=== PATIENT | male | born 1965 | race Caucasian/White ===

== ENCOUNTER 2022-12-31 14:19 | Observation (INO) | payer MEDICAID, SELFPAY ==
[2022-12-31] VITALS (9 sets, daily range): BP systolic 148–187; BP diastolic 95–107; PULSE 71–90; RESP 16–18; TEMP 36.9–37; O2SAT 96–99; BMI 33.5
--- NOTE | 2022-12-31 14:42 | ED_ITS ---
HPI - General Adult General Time Seen by Provider: 14:43 Date Seen: 12/31/22 Chief complaint: Neuro Symptoms/Altered Deficit Stated complaint: History of strokes, having memory issues today. Time Seen by Provider: 12/31/22 14:34 Source: patient and RN notes reviewed Mode of arrival: ambulatory Limitations: no limitations History of Present Illness HPI narrative: This 57yo male is accompanied to ED by his son and daughter with concerns of confusion in setting of history of stroke. He was fine on the phone last night when his son talked to him about 8pm, had about a 3min conversation. This morning his daughter called him and asked if he wanted to go to [employer] which he did. She went to his house and he drove in his truck. He seemed confused on the way there, required help with directions. When they got to [employer], he noted that he did not even know why they were they or couldn't remember anything he needed. His stroke was in 2016 with left facial drooping, left arm and leg deficits per report. He hasn't been to the clinic here except once in about 2 years. He doesn't know when he last took aspirin or his blood pressure medications. Denies any falls or injuries, no chest pain, no shortness of breath, has not been ill with anything, no abdominal symptoms. No fevers. His children note that he moved here from [place] about 2 years ago to dry out. Denies any visual changes. Related Data Home Medications Medication Instructions Recorded Confirmed amlodipine 10 mg tablet 10 mg PO DAILY 12/31/22 12/31/22 aspirin 81 mg capsule 81 mg PO DAILY 12/31/22 12/31/22 lisinopril 40 mg tablet 40 mg PO DAILY 12/31/22 12/31/22 Allergies Allergy/AdvReac Type Severity Reaction Status Date / Time Penicillins Allergy Verified 12/31/22 14:33 Review of Systems Status of ROS: Reports: 6 or more systems reviewed and unremarkable except as noted in History and below Exam Const: Vital Signs, click to edit/add: Vital Signs - 24 hr 12/31/22 14:26 12/31/22 15:00 12/31/22 16:16 Pulse Rate [Left P ulse Oximeter] 90 82 Respiratory Rate 18 Blood Pressure [Le ft Upper Arm] 187/107 H 173/98 H Pulse Oximetry 98 98 96 Oxygen Delivery Me thod Room Air Room Air This 57-year-old male is alert, interactive, no apparent distress. He is ambulatory in the ED with normal gait. Pupils are equal round reactive, extraocular muscles intact, sclera clear. Symmetrical facial function. Appears to have prior trauma to right ear, has thickening of the external ear. Speech is normal, see some tobacco remnants from oral tobacco use on the tongue but tongue protrudes midline. Smile is normal, has symmetrical facial function. Neck is thicker but supple, no masses. Is able to sit up, lungs are clear, good air entry, no wheezing or crackles. CV regular rate and rhythm, no murmur, normal S1-S2. Abdomen is soft, no rebound or guarding, umbilical hernia that is not entrapped. Strength is 5/5 and symmetric, normal light touch sensation. No dysmetria no tremors, no arm drift. Patient knows the year to be 2022, the month of December, answers the dated be Sunday. Knows the president is Simeon. Documenting provider has reviewed patient's vital signs: yes Course Course ED Course: Will have patient have a noncontrast head CT. There certainly seem to be some memory or confusion issues today. He is hypertensive but it has been off his meds, will observe as lowering his blood pressure could be detrimental as well. Will have him on pulse oximetry, obtain EKG and labs. Will talk to Neurology about him given his history. I see nothing focal outside of the reported confusion suggesting a large territory CVA and timing is problematic with last known well last night. Reevaluation(s) Time of Reevaluation #1: 16:29 Reevaluation #1: Reviewed my phone conversation with the stroke neurologist with patient and his children. Plan will be to have CT angio of head and neck as per Neurology discussion, MRI of his brain in the morning. Allow permissive hypertension at this point. He will be getting aspirin. Consultations Consultation #1: Spoke with Dr. Hall on-call neurology from [facility]. He agrees that this could be stroke pathology. He did want me to proceed with CT angio of his head neck and an MRI tomorrow morning. He would recommend hospitalization overnight, will give him 325 mg aspirin today. They will plan on rounding on him in the morning. He did discuss possibility of this being PRES but did not want to do anything until we have an MRI in the morning. There is high chance that this could be a small distributions/small-vessel ischemic CVA. Thus, await MRI in the morning. Time: 16:00 Consultation #2: Have reviewed with the hospitalist Dr. Shepherd. She accepts patient. I a have ordered his MRI for tomorrow, she is aware that the CT angio of his head and neck have been ordered but have not been done. Depending on where patient is that, 1 of us will need to follow-up on these images. Time: 16:39 Vital Signs Vital signs: Initial Vital Signs Pulse Rate 90 12/31/22 14:26 Respiratory Rate 18 12/31/22 14:26 Blood Pressure 187/107 H 12/31/22 14:26 Blood Pressure Mean 133 H 12/31/22 14:26 Blood Pressure Position Sitting 12/31/22 14:26 Pulse Oximetry 98 12/31/22 14:26 Oxygen Delivery Method Room Air 12/31/22 14:26 Vital Signs Pulse Rate 90 12/31/22 14:26 Respiratory Rate 18 12/31/22 14:26 Blood Pressure 187/107 H 12/31/22 14:26 Pulse Oximetry 98 12/31/22 14:26 Oxygen Delivery Method Room Air 12/31/22 14:26 Pulse Rate 82 12/31/22 16:16 Respiratory Rate 18 12/31/22 14:26 Blood Pressure 173/98 H 12/31/22 16:16 Pulse Oximetry 96 12/31/22 16:16 Oxygen Delivery Method Room Air 12/31/22 16:16 Medications Administered Medications: Generic Name Dose Route Start Last Admin Trade Name Nan PRN Reason Stop Dose Admin Aspirin 325 mg 12/31/22 16:05 12/31/22 16:19 Aspirin Ec 325 Mg Tablet PO 12/31/22 16:06 325 mg DAILY ONE Administration Medical Decision Making Lab Data Lab results reviewed: Yes I reviewed the patient's lab results Labs: Lab Results 12/31/22 Range/Units 15:22 WBC 6.61 (4.50-11.00) K/uL RBC 4.72 (4.30-5.90) m/uL Hgb 14.1 (13.5-17.5) gm/dL Hct 42.1 (37.0-53.0) % MCV 89 (80-100) fL MCH 30 (26-34) pg MCHC 34 (32-36) gm/dL RDW Coeff of [place] 13.5 (11.5-15.5) % Plt Count 340 (140-440) K/uL Neut % (Auto) 62.2 (42.0-72.0) % Lymph % (Auto) 26.5 (20-44) % [place] % (Auto) 7.9 (0.0-11.0) % Eos % (Auto) 1.7 (0.0-7.0) % Baso % (Auto) 0.8 (0.0-3.0) % Neut # (Auto) 4.12 (1.7-7.0) K/uL Lymph # (Auto) 1.75 (0.90-2.90) K/uL [place] # (Auto) 0.50 (0.00-0.90) K/UL Eos # (Auto) 0.11 (0.00-0.50) K/uL Baso # (Auto) 0.05 (0.00-0.30) K/uL Abs Immat Gran (auto) 0.06 (0.00-0.30) K/uL Imm/Tot Granulo (auto) 0.9 % ESR 5 (2-15) mm/hr Sodium 139 (135-149) mmol/L Potassium 3.7 (3.6-5.1) mmol/L Chloride 104 (96-114) mmol/L Carbon Dioxide 25 (20-32) mmol/L Anion Gap 10 (7-15) mEq/L BUN 13 (7-30) mg/dL Creatinine 1.1 (0.5-1.5) mg/dL Estimated Creat Clear 61.29 Estimated GFR 78 ml/min Glucose 100 (60-115) mg/dL Calcium 9.4 (8.4-10.6) mg/dL Total Bilirubin 0.4 (0.1-1.5) mg/dL AST 31 (12-35) U/L ALT 23 (4-50) U/L Alkaline Phosphatase 80 (40-150) U/L Troponin I 0.01 (0.01-0.04) ng/mL C-Reactive Protein 0.8 (0.5-1.0) mg/dL Total Protein 7.4 (6.0-8.3) g/dL Albumin 4.3 (3.3-5.0) g/dL TSH 1.250 (0.270-4.200) uIU/mL Ethyl Alcohol < 0.01 L (0.01-0.03) % Imaging Data CT scan - head: Attestation: I have reviewed the pertinent imaging results. Radiologist's impression: Patient: CJ RILEY Facility:?[facility] Patient ID:?[id number] Site Patient ID:?[id number]. Site :?1965 Study:?CT Head w/o-12/31/2022 2:58:08 PM Ordering Physician:?Anatoliy Lopez Final Report: Indication: Memory issues, history of CVA Technique: Volumetric multidetector CT images of the head were obtained without the administration of low osmolar intravenous contrast. Comparison: None available Findings: There is no intra-axial or extra-axial fluid collection. There is no mass effect or midline shift. There is global cortical atrophy with ex vacuo dilatation of the lateral ventricles. There is encephalomalacia of the left temporal lobe as well as the posterior right temporal lobe and right occipital lobe with moderate chronic small vessel disease change of the subcortical and periventricular white matter. Old lacunar changes of the basal ganglia are appreciated. The remaining brain parenchyma is preserved in attenuation and cutler-white differentiation. The orbits and their contents are grossly within normal limits. The bony calvarium is grossly intact. The paranasal sinuses are clear. The mastoid air cells are well aerated. Impression: Extensive remote ischemic changes of the brain involving the bilateral temporal lobes without evidence of new acute intracranial abnormality. Please note that all CT scans at this facility use dose modulation, iterative reconstruction, and/or weight-based dosing when appropriate to reduce radiation dose to as low as reasonably achievable. Dictated by Cody Kim MD @ 12/31/2022 3:22:43 PM (Electronic Signature) CT angio head and neck: Attestation: I have reviewed the pertinent imaging results. My impression: Patient had already transferred to hospital floor at time review of this report. Will make sure the hospitalist has seen this as well, do not see anything that necessitates any acute emergent intervention. Neurology is following the patient as well. Radiologist's impression: Patient: CJ FRAIRE Facility:?[facility] Patient ID:?[id number] Site Patient ID:?[id number]. Site :?1965 Study:?CT Neck Angio Angio w/ 95cc [id number]/12/2023 5:01:40 PM Ordering Physician:Mando Lopez Preliminary Report: CTA Head: 1. No intracranial proximal arterial occlusion. 2. Multifocal right MEMBER SERVICE SPECIALIST stenosis, moderate P2 segment, moderately-severe P3 segment. 3. Mild-moderate multifocal left A2/A3 segment HELIO narrowing. CTA Neck: . No evidence of hemodynamically significant stenosis or acute dissection in the neck. 2. Mild (less than 50 percent) narrowing right proximal ICA. 3. Left dorsal thoracic lipoma. Dictated by Jeanine Jiang MD @ 12/31/2022 5:20:49 PM Read by:?Jeanine Jiang MD @ 12/31/2022 17:20:54 ECG Data Attestation: I personally reviewed and interpreted this ECG as follows: (Normal sinus rhythm, 87 beats per minute. Intra conduction delay, likely developing left bundle branch block, strain pattern. QT corrected 519 milliseconds.) Prior ECG tracings: not available for review Critical Care Time Critical Care Time Critical Care Time: No Discharge Plan Discharge Clinical Impression: Acute confusion, Memory change Patient Disposition: Admitted As Observation
--- NOTE | 2022-12-31 14:50 | CRLHL7_ITS ---
For Patients: As a result of the Century Cures Act, medical imaging exams and procedure reports are released immediately into your electronic medical record. You may view this report before your referring provider. If you have questions, please contact your health care provider. Indication: Memory issues, history of CVA Technique: Volumetric multidetector CT images of the head were obtained without the administration of low osmolar intravenous contrast. Comparison: None available Findings: There is no intra-axial or extra-axial fluid collection. There is no mass effect or midline shift. There is global cortical atrophy with ex vacuo dilatation of the lateral ventricles. There is encephalomalacia of the left temporal lobe as well as the posterior right temporal lobe and right occipital lobe with moderate chronic small vessel disease change of the subcortical and periventricular white matter. Old lacunar changes of the basal ganglia are appreciated. The remaining brain parenchyma is preserved in attenuation and cutler-white differentiation. The orbits and their contents are grossly within normal limits. The bony calvarium is grossly intact. The paranasal sinuses are clear. The mastoid air cells are well aerated. Impression: Extensive remote ischemic changes of the brain involving the bilateral temporal lobes without evidence of new acute intracranial abnormality. Please note that all CT scans at this facility use dose modulation, iterative reconstruction, and/or weight-based dosing when appropriate to reduce radiation dose to as low as reasonably achievable. Dictated by Cody Kim MD @ 12/31/2022 3:22:43 PM (Electronically Signed)
[2022-12-31 15:28] LABS: Basophils Absolute Auto 0.05 K/uL (0.00-0.30); Basophils Percent Auto 0.8 % (0.0-3.0); Eosinophils Absolute Auto 0.11 K/uL (0.00-0.50); Eosinophils Percent Auto 1.7 % (0.0-7.0); Hematocrit 42.1 % (37.0-53.0); Hemoglobin* 14.1 gm/dL (13.5-17.5); Immature Granulocytes Abs Auto 0.06 K/uL (0.00-0.30); Immature Granulocytes Pct Auto 0.9 %; Lymphocytes Absolute Auto 1.75 K/uL (0.90-2.90); Lymphocytes Percent Auto 26.5 % (20-44); Mean Corpuscular HGB Conc 34 gm/dL (32-36); Mean Corpuscular Hemoglobin 30 pg (26-34); Mean Corpuscular Volume 89 fL (80-100); Monocytes Percent Auto 7.9 % (0.0-11.0); Neutrophils Absolute Auto 4.12 K/uL (1.7-7.0); Neutrophils Percent Auto 62.2 % (42.0-72.0); Platelet Count* 340 K/uL (140-440); RDW Coefficient of Variation % 13.5 % (11.5-15.5); Red Blood Count 4.72 m/uL (4.30-5.90); White Blood Count* 6.61 K/uL (4.50-11.00)
[2022-12-31 15:31] LABS: Slide Review Reflex No
[2022-12-31 15:42] LABS: Albumin* 4.3 g/dL (3.3-5.0); Chloride* 104 mmol/L (96-114)
[2022-12-31 15:43] LABS: Potassium* 3.7 mmol/L (3.6-5.1); Sodium* 139 mmol/L (135-149)
[2022-12-31 15:45] LABS: Alkaline Phosphatase* 80 U/L (40-150); Anion Gap 10 mEq/L (7-15); Aspartate Amino Transferase* 31 U/L (12-35); Bilirubin Total* 0.4 mg/dL (0.1-1.5); Carbon Dioxide* 25 mmol/L (20-32); Creatinine* 1.1 mg/dL (0.5-1.5); Est. Creatinine Clearance* 61.29; Estimated Glomerular Filt Rate 78 ml/min; Total Protein* 7.4 g/dL (6.0-8.3)
[2022-12-31 15:46] LABS: Alanine Aminotransferase* 23 U/L (4-50); Blood Urea Nitrogen* 13 mg/dL (7-30); Calcium* 9.4 mg/dL (8.4-10.6); Glucose* 100 mg/dL (60-115)
[2022-12-31 15:47] LABS: Ethanol* < 0.01 % (0.01-0.03)
[2022-12-31 15:48] LABS: C Reactive Protein* 0.8 mg/dL (0.5-1.0)
[2022-12-31 15:57] LABS: Troponin I* 0.01 ng/mL (0.01-0.04)
[2022-12-31 16:12] LABS: Erythrocyte SedimentationRate* 5 mm/hr (2-15)
[2022-12-31] MEDS: ASPIRIN EC 325 MG TABLET PO (16:19)
--- NOTE | 2022-12-31 16:25 | CRLHL7_ITS ---
For Patients: As a result of the Century Cures Act, medical imaging exams and procedure reports are released immediately into your electronic medical record. You may view this report before your referring provider. If you have questions, please contact your health care provider. DATE: 12/31/2022 CLINICAL HISTORY: Patient with focal neurological deficits. TECHNIQUE: Standard helical CT image acquisition through the intracranial circulation following intravenous administration of contrast material with bolus tracking. 2D and 3D MIP images for post-processing were performed and interpreted on an independent workstation and 3D images were permanently archived. COMPARISON: CT same day. FINDINGS: There is no cerebral aneurysm or large vessel occlusion. There is intracranial atherosclerosis with moderate stenoses in the anterior and posterior cerebral arteries bilaterally. The right internal carotid artery is normal. The right middle cerebral artery and its branches are normal. The left internal carotid artery is normal. The left middle cerebral artery and its branches are normal. The anterior communicating artery is well visualized and appears normal. The right vertebral artery and PICA are normal. The left vertebral artery and PICA are normal. The right vertebral artery is dominant. The basilar artery is patent and appears normal. The visualized venous structures are patent. IMPRESSION: 1. No cerebral aneurysm or large vessel occlusion. 2. Intracranial atherosclerosis with moderate stenoses in the anterior and posterior cerebral arteries bilaterally. Please note that all CT scans at this facility use dose modulation, iterative reconstruction, and/or weight-based dosing when appropriate to reduce radiation dose to as low as reasonably achievable. Dictated by Saleem Garibay MD @ 12/31/2022 6:16:35 PM (Electronically Signed)
--- NOTE | 2022-12-31 16:25 | CRLHL7_ITS ---
For Patients: As a result of the Century Cures Act, medical imaging exams and procedure reports are released immediately into your electronic medical record. You may view this report before your referring provider. If you have questions, please contact your health care provider. DATE: 12/31/2022 CLINICAL HISTORY: Patient with focal neurological deficits. TECHNIQUE: Standard helical CT image acquisition of the neck up to the skull base after bolus intravenous contrast enhancement. 2D and 3D MIP images for post-processing were performed and interpreted on an independent workstation and 3D images were permanently archived. COMPARISON: CT same day. FINDINGS: The origins of the great vessels from the aortic arch are patent. The origin of the right vertebral artery demonstrates mild narrowing. The origin of the left vertebral artery is patent. The common carotid arteries are patent. There is a mild (<50%) stenosis at the origin of the right internal carotid artery by NASCET criteria. This is caused by calcified plaque with a <2mm residual lumen. There is no stenosis at the origin of the left internal carotid artery by NASCET criteria. The rest of the cervical segments of the internal carotid arteries are patent up to the skull base. The right vertebral artery is dominant. The cervical segments of the vertebral arteries are patent up to the skull base. The visualized lung apices are unremarkable. The thyroid gland is unremarkable. The soft tissues of the neck are unremarkable. There are degenerative changes in the cervical spine. IMPRESSION: 1. Mild (<50%) stenosis at the origin of the right internal carotid artery by NASCET criteria. This is caused by calcified plaque with a <2mm residual lumen. 2. Mild dominant right vertebral artery origin stenosis. Please note that all CT scans at this facility use dose modulation, iterative reconstruction, and/or weight-based dosing when appropriate to reduce radiation dose to as low as reasonably achievable. Dictated by Saleem Garibay MD @ 12/31/2022 6:13:24 PM (Electronically Signed)
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
--- NOTE | 2022-12-31 19:28 | PC.NURSE ---
Pt admitted to med/surg unit at approximately 1725 this evening with daughter and son present. His daughter states they went shopping earlier today though pt became confused and did not recall going to [facility]. He states he does recall going to [facility] now when asked. B/P noted to be elevated at 177/101 upon first blood pressure check though B/P has since decreased after resting- see orthostatic blood pressure assessment. Pt has denied pain, CP, N/V, numbness or tingling when asked by RN. However, when MD met with pt he informed MD that he has had numbness/tingling to tip of his tongue that has been going on for two months. Pt admits he has been non-compliant with taking medications. PERRLA. Pt noted to be alert & oriented x 4 though when freelance writer asked him questions such as what pharmacy he prefers he was noted to be looking at daughter to answer questions. Pt states he uses chewing tobacco- approximately 1 tin every 2 days. Lung sounds noted to be clear and bowel sounds active x 4 with last BM of 12/30/22 per pt report. Pt lives alone in his own apartment. He is able to transfer and reposition independently. Pt is currently on telemetry- noted to be in NSR with 12 lead EKG completed. Pt has had no slurred speech, facial drooping or weakness noted. Pt able to move all four extremities and hand grasps noted to be equal bilaterally. He is finishing supper at this time. No edema noted. ED RN reported pt's IV in L hand infiltrated. IV was then placed to R wrist in ED.
[2022-12-31] MEDS: ENOXAPARIN 40 MG/0.4 ML INJ SUBCUT (20:04)
[2022-12-31] MEDS: CLOPIDOGREL 75 MG TABLET 300 MG PO (20:04)
[2022-12-31] MEDS: SODIUM CHLORIDE 0.9 % (FLUSH) 10 ML SYRINGE 5 ML IVF (20:05)
[2023-01-01] VITALS (9 sets, daily range): BP systolic 152–166; BP diastolic 76–104; PULSE 63–91; RESP 15–18; TEMP 36.3–37; O2SAT 94–98
--- NOTE | 2023-01-01 04:24 | PC.NURSE ---
Pt rested well this night. Answers questions appropriately. No trouble finding words or staying on task. Up IND in room. Stable on feet. Reporting zero pain.
[2023-01-01 06:16] LABS: Hemoglobin A1C* 5.7 % (0-5.6)
[2023-01-01 06:24] LABS: Cholesterol* 177 mg/dL (90-199); HDL Cholesterol* 28 mg/dL (>=40); LDL Cholesterol Calculated 109 mg/dL (<100); Triglycerides* 200 mg/dL (40-149)
[2023-01-01] MEDS: ASPIRIN 81 MG TABLET EC PO (09:10)
[2023-01-01] MEDS: AMLODIPINE 10 MG TABLET PO (09:10)
[2023-01-01] MEDS: ATORVASTATIN CALCIUM 40 MG TABLET PO (09:10)
[2023-01-01] MEDS: CLOPIDOGREL 75 MG TABLET PO (09:11)
[2023-01-01] MEDS: lisinopriL 20 MG TABLET 40 MG PO (09:11)
[2023-01-01] MEDS: SODIUM CHLORIDE 0.9 % (FLUSH) 10 ML SYRINGE 5 ML IVF ×2 (09:13→19:53)
--- NOTE | 2023-01-01 10:40 | NUTR.NU ---
RDN with nutrition education related to current diet order of Heart Healthy diet. Patient admitted 12/31/2022 for possible stroke and confusion. Past medical history includes CVA in 2016 and hypertension. Patient to receive MRI today. BMI is obese at 34.1 kg/m2; height 5ft 4 in; weight 198 lb 11.947 oz. Patient does not have a designated caregiver listed. Lives at home with family. RDN visited with patient whom reports not following a diet at home. He reports knowing he should watch what he eats. 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 RDN offered diet education however patient declined at this time. Patient did accept educational materials for Heart Healthy diet. RDN's contact information was provided and patient was encouraged to call with questions. No nutrition interventions at this time. RDN will continue to monitor.
--- NOTE | 2023-01-01 11:15 | CRLHL7_ITS ---
For Patients: As a result of the Century Cures Act, medical imaging exams and procedure reports are released immediately into your electronic medical record. You may view this report before your referring provider. If you have questions, please contact your health care provider. Indication: Confusion. Memory issues. Technique: Multiplanar, multisequence MRI of the brain was performed without intravenous contrast. Comparison: CT head 12/31/2022. Findings: The corpus callosum, pituitary gland and clivus appear intact. Mild degenerative change visualized upper cervical spine. There are scattered small foci of restricted diffusion identified within the right frontal lobe, right caudate, left parietal centrum semiovale, left basal ganglia and left hippocampal regions. Most notable lesion within the right caudate region measures up to 17 mm. There is associated T2 FLAIR hyperintensity. The ventricles are proportionate to the cerebral sulci. The 4th ventricle appears midline. The basal cisterns appear patent. No abnormal extra-axial fluid collection identified. Mild parenchymal volume loss. Moderate T2 FLAIR hyperintense foci within the subcortical and periventricular white matter, favored to represent chronic ischemic microvascular disease. Suspect cataract small chronic lacunar infarcts throughout the brain parenchyma. Mild sized region of encephalomalacia and gliosis along the left lateral temporal lobe. Smaller encephalomalacia and gliosis right posterior temporal lobe. There is no intracranial mass, abnormal mass-effect or midline shift identified. Both globes are preserved. Impression: 1. Scattered small acute/subacute infarcts involving the right frontal, right caudate region, left centrum semiovale, left basal ganglia and hippocampal regions. 2. Scattered chronic infarcts throughout the brain parenchyma, most notably involving the left lateral temporal lobe. 3. Moderate chronic ischemic microvascular disease. Dictated by Jonathon Villanueva MD @ 01/01/2023 12:28:51 PM (Electronically Signed)
--- NOTE | 2023-01-01 12:10 | P.DS_ITS ---
DS: Providers Provider Date Seen: 01/01/23 Date of admission: 12/31/22 17:09 Primary care physician: Not a Local Provider Admitting Clinician: Carrie Shepherd MD Consults: 12/31/22 17:33 Consult to Occupational Therapy [CONS] Routine Comment: Reason(s) for OT Consult:: Evaluate and Treat Any Restrictions?:: No Restrictions Consult to Physical Therapy [CONS] Routine Comment: Reason(s) for PT Consult:: Evaluate and Treat Any Restrictions?:: No Restrictions Consult to Laundry Routeman [CONS] Routine Comment: does not have medical insurance but has a job Reason for Consult:: Social Service Consult Attending Physician on discharge: ADRIANE Benavides, [facility] Date of Discharge: 01/01/23 DS: Diagnosis Discharge Diagnosis (1) Acute confusion: Status: Acute Problem details: CT shows vascular disease without acute abnormality. MRI shows 1. Scattered small acute/subacute infarcts involving the right frontal, right caudate region, left centrum semiovale, left basal ganglia and hippocampal regions. 2. Scattered chronic infarcts throughout the brain parenchyma, most notably involving the left lateral temporal lobe. 3. Moderate chronic ischemic microvascular disease. On admission, allowed for permissive hypertension, resuming home medications on discharge. Echo was obtained, preliminary read negative bubble study with and without Valsalva, good left ventricular systolic function, LVH. Formal read pending. Lipids obtained showing triglyceride 200, LDL 109, HDL 28. A1c 5.7 Telemetry and neuro checks remained unremarkable. Tele neurology follow-up recommending Zio Patch 30 day monitor, high-intensity statin, outpatient Neurology consult given MRI findings and concern for embolic stroke without known cause. Patient is discharged on aspirin 81 mg daily, plavix 75 mg daily times 90 days, atorvastatin 80 mg daily. Outpatient follow-up with PCP for ongoing medication management. OT recommending outpatient evaluation for further testing. Discussed with daughter, Twila, who has noted some gradual cognitive decline over the last se veral months as well. Recommend no driving or work until follow-up with PCP. (2) Stroke: Status: Acute Problem details: Embolic stroke without known cause, as above Hx of CVA in 2016 by family report, got TPA and transferred from [place] to [place] with left sided deficits. recovered all loss. (3) Hypertension: Status: Acute Problem details: dual med: lisinopril and amlodipine. not compliant. Will need to establish PCP for ongoing management (4) Alcoholism: Status: Acute Problem details: -sober since 2020 from [employer] but had relapse in 12/11. Recommend sobriety DS: Summary Hospital Course Hospital Course: [age] year old male past medical history significant for hypertension, hyperlipidemia not currently on medication, previous CVA 2016 with resolved left-sided deficit, alcoholism previously in remission, current drinker as of 12/11, chewing tobacco dependent was admitted to the medical floor for stroke- like symptoms with increased confusion for further CVA workup. Course of care and details as noted above. Remainder of chronic medical comorbidities were monitored and managed with home medications. Status at Discharge Overall status at discharge: patient is progressing back to baseline Time Spent with Patient Time attestation: Total time spent providing and/or coordinating discharge services: Time spent: Greater than 30 minutes Exam Narrative: Exam Narrative: PHYSICAL EXAM General: Sitting up in bed, conversant, NAD HEENT: Normocephalic, atraumatic, sclera white, EOMI, oral mucosa moist Cardiovascular: RRR, S1S2. No pitting edema Pulmonary: CTA bilaterally without rhonchi, rales, expiratory wheezes. No dyspnea Neurological: Alert, answering questions appropriately, cranial nerves intact, no focal findings on exam Extremities: No gross joint deformity or swelling. AROMI. Neurovascularly intact Skin: Warm, dry. Const: Vital Signs, click to edit/add: Vital Signs - 24 hr 12/31/22 14:26 12/31/22 15:00 12/31/22 16:16 Temperature Pulse Rate Pulse Rate [Left P ulse Oximeter] 90 82 Pulse Rate [Left R adial] Pulse Rate [orthos tatic lying Left] Pulse Rate [orthos tatic sitting Left ] Pulse Rate [orthos tatic standing Lef t] Respiratory Rate 18 Blood Pressure [Le ft Arm] Blood Pressure [Le ft Upper Arm] 187/107 H 173/98 H Blood Pressure [Ri ght Arm] Blood Pressure [or thostatic lying Le ft Arm] Blood Pressure [or thostatic sitting Left Arm] Blood Pressure [or thostatic standing Left Arm] Pulse Oximetry 98 98 96 Oxygen Delivery Me thod Room Air Room Air 12/31/22 17:33 12/31/22 17:33 12/31/22 17:33 Temperature 98.5 F Pulse Rate 81 Pulse Rate [Left P ulse Oximeter] Pulse Rate [Left R adial] Pulse Rate [orthos tatic lying Left] Pulse Rate [orthos tatic sitting Left ] Pulse Rate [orthos tatic standing Lef t] Respiratory Rate 16 16 Blood Pressure [Le ft Arm] 177/101 H Blood Pressure [Le ft Upper Arm] Blood Pressure [Ri ght Arm] Blood Pressure [or thostatic lying Le ft Arm] Blood Pressure [or thostatic sitting Left Arm] Blood Pressure [or thostatic standing Left Arm] Pulse Oximetry 99 99 Oxygen Delivery Hi thod Room Air Room Air 12/31/22 18:00 12/31/22 18:55 12/31/22 21:16 Temperature Pulse Rate 80 Pulse Rate [Left P ulse Oximeter] Pulse Rate [Left R adial] Pulse Rate [orthos tatic lying Left] 78 Pulse Rate [orthos tatic sitting Left ] 79 Pulse Rate [orthos tatic standing Lef t] 71 Respiratory Rate 16 Blood Pressure [Le ft Arm] Blood Pressure [Le ft Upper Arm] Blood Pressure [Ri ght Arm] Blood Pressure [or thostatic lying Le ft Arm] 148/96 H Blood Pressure [or thostatic sitting Left Arm] 155/99 H Blood Pressure [or thostatic standing Left Arm] 149/95 H Pulse Oximetry 99 Oxygen Delivery Hi thod Room Air 12/31/22 22:26 12/31/22 22:27 01/01/23 02:39 Temperature 98.6 F 98.6 F Pulse Rate Pulse Rate [Left P ulse Oximeter] Pulse Rate [Left R adial] 83 72 Pulse Rate [orthos tatic lying Left] Pulse Rate [orthos tatic sitting Left ] Pulse Rate [orthos tatic standing Lef t] Respiratory Rate 16 16 Blood Pressure [Le ft Arm] 149/98 H 158/87 H Blood Pressure [Le ft Upper Arm] Blood Pressure [Ri ght Arm] Blood Pressure [or thostatic lying Le ft Arm] Blood Pressure [or thostatic sitting Left Arm] Blood Pressure [or thostatic standing Left Arm] Pulse Oximetry 99 98 98 Oxygen Delivery Hi thod Room Air Room Air 01/01/23 07:00 01/01/23 07:00 01/01/23 08:16 Temperature 97.8 F Pulse Rate 63 Pulse Rate [Left P ulse Oximeter] Pulse Rate [Left R adial] 67 Pulse Rate [orthos tatic lying Left] Pulse Rate [orthos tatic sitting Left ] Pulse Rate [orthos tatic standing Lef t] Respiratory Rate 15 Blood Pressure [Le ft Arm] 163/103 H Blood Pressure [Le ft Upper Arm] Blood Pressure [Ri ght Arm] Blood Pressure [or thostatic lying Le ft Arm] Blood Pressure [or thostatic sitting Left Arm] Blood Pressure [or thostatic standing Left Arm] Pulse Oximetry 97 97 Oxygen Delivery Me thod Room Air 01/01/23 11:00 Temperature 97.4 F L Pulse Rate Pulse Rate [Left P ulse Oximeter] Pulse Rate [Left R adial] 72 Pulse Rate [orthos tatic lying Left] Pulse Rate [orthos tatic sitting Left ] Pulse Rate [orthos tatic standing Lef t] Respiratory Rate 15 Blood Pressure [Le ft Arm] Blood Pressure [Le ft Upper Arm] Blood Pressure [Ri ght Arm] 161/100 H Blood Pressure [or thostatic lying Le ft Arm] Blood Pressure [or thostatic sitting Left Arm] Blood Pressure [or thostatic standing Left Arm] Pulse Oximetry 96 Oxygen Delivery Me thod Room Air DS: Data Data Completed and Pending Labs on day of discharge: Labs from last 24 hours 01/01/23 12/31/22 05:45 15:22 WBC 6.61 RBC 4.72 Hgb 14.1 Hct 42.1 MCV 89 MCH 30 MCHC 34 RDW Coeff of Chen[place] 13.5 Plt Count 340 Neut % (Auto) 62.2 Lymph % (Auto) 26.5 [place] % (Auto) 7.9 Eos % (Auto) 1.7 Baso % (Auto) 0.8 Neut # (Auto) 4.12 Lymph # (Auto) 1.75 [place] # (Auto) 0.50 Eos # (Auto) 0.11 Baso # (Auto) 0.05 Abs Immat Gran (auto) 0.06 Imm/Tot Granulo (auto) 0.9 ESR 5 Sodium 139 Potassium 3.7 Chloride 104 Carbon Dioxide 25 Anion Gap 10 BUN 13 Creatinine 1.1 Estimated Creat Clear 61.29 Estimated GFR 78 Glucose 100 Hemoglobin A1c 5.7 H Calcium 9.4 Total Bilirubin 0.4 AST 31 ALT 23 Alkaline Phosphatase 80 Troponin I 0.01 C-Reactive Protein 0.8 Total Protein 7.4 Albumin 4.3 Triglycerides 200 H Cholesterol 177 LDL Cholesterol, Calc 109 H HDL Cholesterol 28 L TSH 1.250 Ethyl Alcohol < 0.01 L Discharge Plan Discharge Disposition: Home, Self-Care Date of Admission: 12/31/22 17:09 Attending Provider on Discharge: Caitlyn Lopez Primary Care Provider: Provider,Not a Local Condition: Improved Anticipated Discharge Date/Time: 01/02/23 10:46 Discharge Medications: New atorvastatin 80 mg tablet 80 mg PO QHS Qty: 90 0RF clopidogrel [Plavix] 75 mg tablet 75 mg PO DAILY Qty: 90 0RF Continued lisinopril 40 mg tablet 40 mg PO DAILY amlodipine 10 mg tablet 10 mg PO DAILY aspirin 81 mg capsule 81 mg PO DAILY Discharge Orders: Discharge Order (Routine); Ordered 01/02/23 Ordered By: Caitlyn Lopez Patient Education: Atorvastatin (By mouth), Clopidogrel (By mouth), Stroke (GEN) Additional Instructions: Your MRI shows several new and old infarcts (strokes) throughout your brain. This is concerning for an embolic stroke of unknown source. Continue to take your blood pressure medication as prescribed. You have been prescribed a high dose statin to take based on your lipid results. You will need to take your aspirin daily as well as clopidogrel (Plavix) for [address] UNTIL FURTHER EVALUATION HAS BEEN COMPLETED. REFRAIN FROM USING ALCOHOL. You need outpatient follow up with your PCP in [place], Neurology, and Occupational Therapy. You need further outpatient tests including a CORDELL and a Ziopatch holter monitor. You should not return to work until you have been seen by a PCP at the [facility] clinic. OUTPATIENT OT TO EVAL AND TREAT. CORDELL ZIO PATCH NEUROLOGY CONSULT Activity Level: Activity as Tolerated Discharge Diet: Heart Healthy (2 gm sodium, low fat) Follow Up Appointments: Provider,Not a Local [Primary Care Provider] - 01/09/23 (Follow up Shirley Child. Post hospital visit, emobolic stroke without known source. HTN and Hyperlipidemia management Will need outpatient CORDELL and Zio Patch and OT to eval and treat Outpatient [facility] consult) Musa Patel MD [Referring] - 01/03/23 1:45 pm (Follow up Shirley Child. Post hospital visit, emobolic stroke without known source. HTN and Hyperlipidemia management Will need outpatient CORDELL and Zio Patch and OT to eval and treat Outpatient [facility] consult) Forms: [facility] Info Instructions
[2023-01-01] MEDS: PERFLUTREN LIPID MICROSPHERES 2 ML VIAL IV (17:47)
--- NOTE | 2023-01-01 19:09 | PC.NURSE ---
Nursing Care Hours: [id number] Pt this shift calm and cooperative with cares, alert and oriented, independent in room. Refused meals today stating, anxious to get out of here. When discharge got pushed to tomorrow ticket writer had to encourage pt to order dinner. Pt drinking water but void only x1. MRI and ECHO done today. Neuro consult pending for tomorrow morning. HTN, no c/o headache or change in vision. IV in R wrist tender when bending hand but refused new placement so kept in place. Tele shows NSR.
[2023-01-01] MEDS: ENOXAPARIN 40 MG/0.4 ML INJ SUBCUT (19:53)
[2023-01-02 02:31] VITALS: BP 140/78; PULSE 74; RESP 18; TEMP 36.6; O2SAT 94
--- NOTE | 2023-01-02 06:17 | PC.NURSE ---
Pt rested well this night. Reporting zero pain. Up IND. No change in condition
[2023-01-02 07:00] VITALS: BP 163/109; PULSE 73; RESP 16; TEMP 36.6; O2SAT 96
[2023-01-02] MEDS: ASPIRIN 81 MG TABLET EC PO (08:47)
[2023-01-02] MEDS: CLOPIDOGREL 75 MG TABLET PO (08:47)
[2023-01-02] MEDS: ATORVASTATIN CALCIUM 40 MG TABLET PO (08:48)
[2023-01-02] MEDS: AMLODIPINE 10 MG TABLET PO (08:48)
[2023-01-02] MEDS: lisinopriL 20 MG TABLET 40 MG PO (08:48)
[2023-01-02] MEDS: SODIUM CHLORIDE 0.9 % (FLUSH) 10 ML SYRINGE 5 ML IVF (08:48)
--- NOTE | 2023-01-02 12:18 | PC.NURSE ---
Discharge note: The patient discharged home @ 1214 with his friend. IV was removed... All discharge instructions were provided regarding follow up recommendations and appointment was made tomorrow to see PCP. Stroke education was given as well as encouragement not to drink any alcohol. CASEY MONTANA RN
--- NOTE | 2023-01-12 08:09 | PM.IMPN1 ---
Progress Note: A&P Assessment and plan (1) Acute confusion: Problem details: CT shows vascular disease without acute abnormality. MRI shows 1. Scattered small acute/subacute infarcts involving the right frontal, right caudate region, left centrum semiovale, left basal ganglia and hippocampal regions. 2. Scattered chronic infarcts throughout the brain parenchyma, most notably involving the left lateral temporal lobe. 3. Moderate chronic ischemic microvascular disease. On admission, allowed for permissive hypertension, resuming home medications on discharge. Echo was obtained, preliminary read negative bubble study with and without Valsalva, good left ventricular systolic function, LVH. Formal read pending. Lipids obtained showing triglyceride 200, LDL 109, HDL 28. A1c 5.7 Telemetry and neuro checks remained unremarkable. Tele neurology follow-up recommending Zio Patch 30 day monitor, high-intensity statin, outpatient Neurology consult given MRI findings and concern for embolic stroke without known cause. Patient is discharged on aspirin 81 mg daily, plavix 75 mg daily times 90 days, atorvastatin 80 mg daily. Outpatient follow-up with PCP for ongoing medication management. OT recommending outpatient evaluation for further testing. Discussed with daughter, Twila, who has noted some gradual cognitive decline over the last several months as well. Recommend no driving or work until follow-up with PCP. Status: Acute (2) Stroke: Problem details: Embolic stroke without known cause, as above Hx of CVA in 2016 by family report, got TPA and transferred from [place] to [place] with left sided deficits. recovered all loss. Status: Acute (3) Hypertension: Problem details: dual med: lisinopril and amlodipine. not compliant. Will need to establish PCP for ongoing management Status: Inactive (4) Alcoholism: Problem details: -sober since 2020 from [facility] but had relapse in 12/11. Recommend sobriety Status: Inactive Time Spent With Patient Total time spent: Total time spent caring for the patient today was 45 minutes. This includes time spent for the visit reviewing the chart, time spent during the visit, time spent after the visit and documentation and planning in coordination of care. Subjective Date Seen: 01/01/23 Interval history: Patient was seen on 01/01/23 after being admitted for further work up stroke like symptoms. No events reported overnight. Was planned for d/c, delayed awaiting further work up with MRI, ECHO, TeleNeurology follow up. Exam Narrative: Exam Narrative: PHYSICAL EXAM General: Pleasant, conversant, NAD HEENT: Normocephalic, atraumatic, sclera white, EOMI, oral mucosa moist Cardiovascular: RRR, S1S2. No pitting edema Pulmonary: CTA bilaterally without rhonchi, rales, expiratory wheezes. No dyspnea Abdominal: Soft, nondistended, NTTP Neurological: Alert, answering questions appropriately, cranial nerves intact, no focal findings Extremities: No gross joint deformity or swelling. AROMI. Neurovascularly intact Skin: Warm, dry.
== END 2023-01-02 12:14 | disposition home or self-care (01) ==
LOC: ED 16:04 → MEDSURG 17:10
PROVIDERS: Admitting Provider Family Medicine; Emergency Provider Family Medicine; Visit Provider Family Medicine
DX: I63.40 Cerebral infarction due to embolism of unspecified cerebral artery (principal); I10 Essential (primary) hypertension; R41.3 Other amnesia; R41.0 Disorientation, unspecified; E78.5 Hyperlipidemia, unspecified; Z91.199 Patient's noncompliance with other medical treatment and regimen due to unspecified reason; F10.20 Alcohol dependence, uncomplicated; K42.9 Umbilical hernia without obstruction or gangrene; D17.9 Benign lipomatous neoplasm, unspecified; F17.220 Nicotine dependence, chewing tobacco, uncomplicated; Z79.82 Long term (current) use of aspirin; I69.398 Other sequelae of cerebral infarction; Z98.890 Other specified postprocedural states
CPT/HCPCS: 36415; 70450; 70496; 70498; 70551; 80053; 80061; 82077; 83036; 84443; 84484; 85025; 85651; 86140; 93005; 93306; 94761; 96372; 96374; 97112; 97161; 97165; 99284; 99285; G0378; G0508; A9270; J1650; Q9957; Q9967